=== PATIENT | male | born 1990 | race Two or more races ===

== ENCOUNTER 2018-12-17 08:41 | Emergency (ER) | payer SELFPAY ==
[~2018-12-17] VITALS: Ht 182.9 cm; Wt 86.2 kg
[2018-12-17 08:46] VITALS: BP 123/78
--- NOTE | 2018-12-17 09:06 | NUR ---
ED Nurse Note: Pt. AAOx4. Ambulatory. Pt. c/o sharp abd pain on the R lateral side with nausea. Pain started today this morning non-radiating. Denies vomiting and diarrhea. Last Bm reported yesterday with well form stool. denies taking pain meds prior to ER arrival. Bowel active sounds present in all quadrants and soft to touch. No acute s/s of acute distress noted at this time.
--- NOTE | 2018-12-17 09:21 | Emergency Room Report ---
History of Present Illness General Chief Complaint: Abdominal Pain Source: Patient Present Illness HPI Patient is a 28 year-old male presents after increased right upper abdominal pain. Patient reports having increased sharp pain in the right upper abdomen. He reports that this had improved since then. He reports having constant pain for several days. This is worse with movement. He denies any diarrhea or vomiting. He had not been having any fever. He denies any black or bloody stools. He reports having one alcohol drink last night. Allergies: Coded Allergies: No Known Allergies (Unverified , 12/17/18) Patient History Past Medical History: see triage record Reviewed Nursing Documentation: PMH: Agreed; PSxH: Agreed Nursing Documentation-PMH Past Medical History: No Stated History Review of Systems All Other Systems: negative except mentioned in HPI Physical Exam Vital Signs Date Time Temp Pulse Resp B/P (MAP) Pulse Ox O2 Delivery O2 Flow Rate FiO2 12/17/18 08:46 61 21 Room Air 12/17/18 08:46 98.4 123/78 98 Sp02 EP Interpretation: reviewed, normal General Appearance: normal inspection, well appearing, no apparent distress, alert, GCS 15 Head: atraumatic ENT: normal ENT inspection, hearing grossly normal, normal voice Neck: normal inspection, full range of motion, supple, no bony tend Respiratory: normal inspection, lungs clear, normal breath sounds, no respiratory distress, no retraction, no wheezing Cardiovascular #1: regular rate, rhythm, no edema Gastrointestinal: normal inspection, normal bowel sounds, non tender, soft, no guarding, no hernia Genitourinary: no CVA tenderness Musculoskeletal: normal inspection, back normal, normal range of motion Neurologic: normal inspection, alert, responsive, speech normal Psychiatric: normal inspection, judgement/insight normal, mood/affect normal Medical Decision Making Diagnostic Impression: Primary Impression: Renal colic on right side ER Course Patient presented for right flank pain. Differential diagnosis include was not limited to renal colic, ulcer, gastritis, gallbladder disease among others. Because of complexity of patient's case laboratory testing and imaging studies were ordered. Patient was noted to have some significant right sided abdominal pain initially. This had apparently been improved prior to arrival. Right upper quadrant ultrasound showed nonobstructing right renal stones. Patient was given IV fluids. He was also given IV Toradol for pain. Urinalysis showed some slight microscopic hematuria as well as leukocytosis. Patient was given a prescription for oral antibiotics as well as pain medications. He was advised to follow-up with primary care physician for recheck. He is advised to return if worse. Labs Test 12/17/18 09:31 White Blood Count 3.9 K/UL (4.8-10.8) Red Blood Count 5.32 M/UL (4.70-6.10) Hemoglobin 15.5 G/DL (14.2-18.0) Hematocrit 46.8 % (42.0-52.0) Mean Corpuscular Volume 88 FL (80-99) Mean Corpuscular Hemoglobin 29.0 PG (27.0-31.0) Mean Corpuscular Hemoglobin Concent 33.1 G/DL (32.0-36.0) Red Cell Distribution Width 11.1 % (11.6-14.8) Platelet Count 210 K/UL (150-450) Mean Platelet Volume 6.6 FL (6.5-10.1) Neutrophils (%) (Auto) 56.8 % (45.0-75.0) Lymphocytes (%) (Auto) 30.3 % (20.0-45.0) Monocytes (%) (Auto) 9.0 % (1.0-10.0) Eosinophils (%) (Auto) 1.9 % (0.0-3.0) Basophils (%) (Auto) 1.9 % (0.0-2.0) Erythrocyte Sedimentation Rate 2 MM/HR (0-15) Urine Color Pale yellow Urine Appearance Clear Urine pH 6.5 (4.5-8.0) Urine Specific [place] 1.015 (1.005-1.035) Urine Protein Negative (NEGATIVE) Urine Glucose (UA) Negative (NEGATIVE) Urine Ketones Negative (NEGATIVE) Urine Blood 1+ (NEGATIVE) Urine Nitrite Negative (NEGATIVE) Urine Bilirubin Negative (NEGATIVE) Urine Urobilinogen Normal MG/DL (0.0-1.0) Urine Leukocyte Esterase Negative (NEGATIVE) Urine RBC 2-4 /HPF (0 - 0) Urine WBC 2-4 /HPF (0 - 0) Urine Squamous Epithelial Cells Occasional /LPF Urine Bacteria Occasional /HPF (NONE) Sodium Level 137 MMOL/L (136-145) Potassium Level 3.7 MMOL/L (3.5-5.1) Chloride Level 103 MMOL/L (98-107) Carbon Dioxide Level 32 MMOL/L (21-32) Anion Gap 2 mmol/L (5-15) Blood Urea Nitrogen 13 mg/dL (7-18) Creatinine 1.1 MG/DL (0.55-1.30) Estimat Glomerular Filtration Rate > 60 mL/min (>60) Glucose Level 99 MG/DL (74-106) Calcium Level 8.8 MG/DL (8.5-10.1) Total Bilirubin 0.8 MG/DL (0.2-1.0) Aspartate Amino Transf (AST/SGOT) 23 U/L (15-37) Alanine Aminotransferase (ALT/SGPT) 11 U/L (12-78) Alkaline Phosphatase 50 U/L (46-116) Total Protein 7.6 G/DL (6.4-8.2) Albumin 4.0 G/DL (3.4-5.0) Globulin 3.6 g/dL Albumin/Globulin Ratio 1.1 (1.0-2.7) Lipase 142 U/L (73-393) Last Vital Signs Date Time Temp Pulse Resp B/P (MAP) Pulse Ox O2 Delivery O2 Flow Rate FiO2 12/17/18 08:46 98.4 61 21 123/78 (93) 98 Room Air Status: improved Disposition: HOME, SELF-CARE Condition: Stable Scripts Cephalexin* (KEFLEX*) 500 Mg Capsule 500 MG ORAL EVERY 6 HOURS, #28 CAP Prov: Sherwin Guo MD 12/17/18 Ibuprofen* (MOTRIN*) 600 Mg Tablet 600 MG ORAL Q8H PRN for For Pain, #30 TAB 0 Refills Prov: Sherwin Guo MD 12/17/18 Hydrocodone Bit/Acetaminophen 5-325* (NORCO 5-325*) 1 Each Tablet 1 TAB ORAL Q6H PRN for For Pain, #10 TAB 0 Refills Prov: Sherwin Guo MD 12/17/18 Sherwin Guo MD Dec 17, 2018 09:21
[2018-12-17 09:48] LABS: BASOPHILS % (AUTO) 1.9 % (0.0-2.0); EOSINOPHILS % (AUTO) 1.9 % (0.0-3.0); HEMATOCRIT 46.8 % (42.0-52.0); HEMOGLOBIN 15.5 G/DL (14.2-18.0); LYMPHOCYTES % (AUTO) 30.3 % (20.0-45.0); MEAN CORPUSCULAR VOLUME 88 FL (80-99); NEUTROPHILS % (AUTO) 56.8 % (45.0-75.0); PLATELET COUNT 210 K/UL (150-450); RED BLOOD COUNT 5.32 M/UL (4.70-6.10); RED CELL DISTRIBUTION WIDTH 11.1 % (11.6-14.8); WHITE BLOOD COUNT 3.9 K/UL (4.8-10.8)
[2018-12-17 09:53] LABS: ANION GAP 2 mmol/L (5-15); BLOOD UREA NITROGEN 13 mg/dL (7-18); CALCIUM 8.8 MG/DL (8.5-10.1); CARBON DIOXIDE 32 MMOL/L (21-32); CHLORIDE 103 MMOL/L (98-107); CREATININE 1.1 MG/DL (0.55-1.30); POTASSIUM 3.7 MMOL/L (3.5-5.1); SODIUM 137 MMOL/L (136-145)
[2018-12-17 09:58] LABS: ALANINE AMINOTRANSFERASE 11 U/L (12-78); ALBUMIN/GLOBULIN RATIO 1.1 (1.0-2.7); ALKALINE PHOSPHATASE 50 U/L (46-116); ASPARTATE AMINO TRANSFERASE 23 U/L (15-37); BILIRUBIN,TOTAL 0.8 MG/DL (0.2-1.0)
[2018-12-17 10:18] LABS: APPEARANCE,URINE CLEAR; BILIRUBIN, URINE NEGATIVE (NEGATIVE); COLOR,URINE PALE YELLOW; GLUCOSE, URINE (UA) NEGATIVE (NEGATIVE); KETONES,URINE NEGATIVE (NEGATIVE); LEUKOCYTE ESTERASE ,URINE NEGATIVE (NEGATIVE); NITRITE,URINE NEGATIVE (NEGATIVE); PH,URINE 6.5 (4.5-8.0); PROTEIN,URINE NEGATIVE (NEGATIVE); UROBILINOGEN,URINE NORMAL MG/DL (0.0-1.0)
[2018-12-17] MEDS: Ketorolac 30mg Inj IV ONE ×2 (10:32→11:37)
--- NOTE | 2018-12-17 10:34 | NUR ---
ED Nurse Note: Pt. refused toradol. Pain level is still 4/10. Pt. stated that he does not want any pain medication at this time and pain level is tolerable. ERMD notified.
[2018-12-17 10:47] VITALS: BP 128/69
--- NOTE | 2018-12-17 10:47 | NUR ---
ED Nurse Note: US at the bedside
[2018-12-17] MEDS ORDERED: IBUPROFEN600 MG ORAL (11:30)
[2018-12-17] MEDS ORDERED: NORCO 5-325 TA1 EACH ORAL (11:30)
[2018-12-17] MEDS ORDERED: CEPHALEXIN500 MG ORAL (11:30)
--- NOTE | 2018-12-17 11:53 | Diagnostic Imaging Report ---
EXAM: US Abdomen Complete CLINICAL HISTORY: ABD PAIN TECHNIQUE: Real-time ultrasound of the abdomen (complete) with image documentation. COMPARISON: No relevant prior studies available. FINDINGS: Liver: Liver measures 17.6 cm. No intrahepatic bile duct dilation. Gallbladder: Gallbladder wall 2 mm. No gallstones. Common bile duct: CBD 3.2 mm. No stones. No dilation. Pancreas: Unremarkable as visualized. Kidneys: 1.6 x 1.9 x 1.5 cm anechoic left renal cyst. 5 mm echogenic focus in the right kidney, maybe a nonobstructive renal stone. Right kidney measures 12.25 x 4.67 x 6.57 cm. Left kidney measures 10.58 x 5. 83 x 5.11 cm. Spleen: Spleen measures 10.3 cm. Aorta: Unremarkable. No aneurysm. Inferior vena cava: Unremarkable. Other findings: Bilateral urinary bladder ureteral jets are seen. IMPRESSION: 1. No renal obstruction. 2. 1.6 x 1.9 x 1.5 cm anechoic left renal cyst. 3. 5 mm echogenic focus in the right kidney, maybe a nonobstructive renal stone. 4. Remainder of exam unremarkable.
[2018-12-17 11:57] VITALS: BP 125/78
--- NOTE | 2018-12-17 11:57 | NUR ---
ER DISCHARGE NOTE: Patient is cleared to be discharged per ERMD, pt is aox4, on room air, with stable vital signs. pt was given dc and prescription instructions, pt was able to verbalize understanding, pt id band and iv site removed without complications. pt is able to ambulate with steady gait. pt took all belongings.
== END 2018-12-17 11:57 | disposition home or self-care (01) ==
LOC: EMR 09:30
DX: N20.0 Calculus of kidney (principal); R31.9 Hematuria, unspecified; D72.829 Elevated white blood cell count, unspecified
CPT/HCPCS: 36415; 76700; 80053; 81001; 83690; 85025; 85651; 96361; 96374; 96375; 99284; J1885; J7040; S0028